=== PATIENT | male | born 1955 | race African-American/Black ===

== ENCOUNTER 2016-12-03 03:05 | Emergency (ER) | payer OTHER ==
[~2016-12-03] VITALS: Ht 172.7 cm; Wt 60.1 kg
[~2016-12-03 03:05] MED LIST: ALBUTEROL SULF8.5 GM IH; AMOX TR-K CLV1 EAC4 PO; CLINDAMYCIN HC300 MG PO; IBUPROFEN600 MG PO; NAPROXEN500 M2 PO; NORVASC10 MG PO; NORVASC5 MG; OMEPRAZOLE20 M1; OMEPRAZOLE20 M2 PO; PEN-VEE K,VEET500 MG PO; PERCOCET 5/31 TABLET PO; PREDNISONE20 MG PO; ROBAXIN500 MG; ULTRAM50 MG PO; VENTOLIN HFA18 GM IH; ZITHROMAX Z-PA250 MG PO
[2016-12-03 03:54] LABS: HEMATOCRIT 35.1 % (38.0-50.0); MCHC 31.9 G/DL (30.0-36.0); MCV 90.9 FL (86-99); MEAN PLAT.VOLUME 9.6 uM^3 (9.0-12.4); PLATELET COUNT 353 K/uL (156-360); RBC DIS.WIDTH-CV 11.9 % (11.8-14.6); RBC DIS.WIDTH-SD 39.9 % (39-53); RED BLOOD COUNT 3.86 M/uL (4.00-5.50); WHITE BLOOD COUNT 10.7 K/uL (4.1-10.2)
[2016-12-03 04:04] LABS: CHLORIDE 103 mEq/L (99-109); POTASSIUM 3.5 mEq/L (3.7-5.4); SODIUM 141 mEq/L (136-147)
[2016-12-03 04:06] LABS: GLUCOSE 142 mg/dL (70-99)
[2016-12-03 04:08] LABS: ANION GAP 14 MEQ/L (2-14)
[2016-12-03 04:10] LABS: GFR ESTIMATE (CALCULATED) > 59 mL/min/
[2016-12-03 04:11] LABS: UREA NITROGEN (BUN) 12 mg/dL (9-23)
[2016-12-03] MEDS ORDERED: LEVAQUIN500 MG PO (04:30)
[2016-12-03] MEDS ORDERED: DELTASONE20 M1 PO (04:30)
[2016-12-03 05:14] VITALS: BP 105/70
== END 2016-12-03 05:17 | disposition left against medical advice (07) ==
LOC: EME 03:05
PROVIDERS: Physician Assistant
DX: J44.0 Chronic obstructive pulmonary disease with (acute) lower respiratory infection (principal); J18.9 Pneumonia, unspecified organism; J44.1 Chronic obstructive pulmonary disease with (acute) exacerbation; R09.02 Hypoxemia; J45.909 Unspecified asthma, uncomplicated; I10 Essential (primary) hypertension; F17.200 Nicotine dependence, unspecified, uncomplicated
CPT/HCPCS: 71020; 80048; 83605; 85027; 87040; 94640; 94640 76; 99281; 99283; J7512

== ENCOUNTER 2017-02-09 20:39 | Observation (INO) | payer OTHER ==
[~2017-02-09] VITALS: Ht 172.7 cm; Wt 56.6 kg
[~2017-02-09 20:39] MED LIST changes: +DELTASONE20 M1 PO; +LEVAQUIN500 MG PO
[2017-02-09 21:46] LABS: HEMATOCRIT 39.7 % (38.0-50.0); MCH 28.6 PG (29.0-34.0); MCHC 31.2 G/DL (30.0-36.0); MCV 91.7 FL (86-99); PLATELET COUNT 171 K/uL (156-360); RBC DIS.WIDTH-CV 12.7 % (11.8-14.6); RBC DIS.WIDTH-SD 42.3 % (39-53); RED BLOOD COUNT 4.33 M/uL (4.00-5.50)
[2017-02-09 21:58] LABS: CHLORIDE 103 mEq/L (99-109); SODIUM 140 mEq/L (136-147)
[2017-02-09 22:00] LABS: GLUCOSE 129 mg/dL (70-99)
[2017-02-09 22:01] LABS: ANION GAP 10 MEQ/L (2-14)
[2017-02-09 22:03] LABS: GFR ESTIMATE (CALCULATED) > 59 mL/min/
[2017-02-09 22:04] LABS: UREA NITROGEN (BUN) 14 mg/dL (9-23)
[2017-02-09 22:12] LABS: TROP-I INTERPRETATION NEGATIVE; TROPONIN-I < 0.01 ng/mL (0.0-0.30)
[2017-02-10 01:20] LABS: BASE EXCESS 7.1 mEq/L (-3 to +3); BICARBONATE 32.5 mEq/L (22-26); CARBOXY HGB 6.3 % (0-5); PCO2 49 mm Hg (35-45); PO2 68 mm Hg (80-100); pH 7.43 (7.35-7.45)
[2017-02-10 01:21] LABS: COMMENTS - BLOOD GASES C+; DEVICE NC; O2 FLOW 4 L/MIN; SITE LR; TOTAL RESP RATE 10 resp/min
[2017-02-10 02:05] LABS: SERUM ETHYL ALCOHOL < 10 mg/dL
[2017-02-10 02:10] LABS: ADD MIUA? YES; BILIRUBIN NEGATIVE; BLOOD NEGATIVE; COLOR YELLOW ((YELLOW)); GLUCOSE (STRIP) NEGATIVE; KETONES NEGATIVE; LEUKOCYTES NEGATIVE; NITRITE NEGATIVE; PROTEIN (STRIP) NEGATIVE; SPECIFIC GRAVITY 1.016 (1.000-1.030); UROBILINOGEN 0.2 MG/DL (0.2-1.0)
[2017-02-10 02:13] LABS: TOTAL BILIRUBIN 1.1 mg/dL (0.0-1.0)
[2017-02-10 02:14] LABS: ALKALINE PHOSPHATASE 93 IU/L (3-129)
[2017-02-10 02:17] LABS: DIRECT BILIRUBIN 0.3 mg/dL (0.0-0.3)
[2017-02-10 02:19] LABS: ADD MEDTOX COMMENT Y; AMPHETAMINE NEGATIVE (500 ng/mL); BARBITURATES NEGATIVE (200 ng/mL); BENZODIAZEPINES NEGATIVE (150 ng/mL); COCAINE PRESUMPTIVE POSITIVE (150 ng/mL); INTERNAL CONTROLS VALID? YES; METHADONE PRESUMPTIVE POSITIVE (200 ng/mL); METHAMPHETAMINE NEGATIVE (500 ng/mL); OPIATES (MORPHINE) PRESUMPTIVE POSITIVE (100 ng/mL); OXYCODONE NEGATIVE (100 ng/mL); PHENCYCLIDINE NEGATIVE (25 ng/mL); PROPOXYPHENE NEGATIVE (300 ng/mL); THC CANNABINOIDS NEGATIVE (50 ng/mL); TRICYCLIC ANTIDEPRESSANTS NEGATIVE (300 ng/mL)
[2017-02-10 02:22] LABS: BACTERIA RARE /HPF; EPITHELIAL CELLS NONE SEEN /HPF; MUCUS NONE SEEN /LPF; RED BLOOD CELLS 0-5 /HPF (0-5); UCUL ADDED? NO; WHITE BLOOD CELLS 0-5 /HPF (0-5)
[2017-02-10 02:37] VITALS: BP 165/80
[2017-02-10 05:25] VITALS: BP 150/72
[2017-02-10 08:01] VITALS: BP 145/64
[2017-02-10] MEDS ORDERED: PREDNISONE10 MG PO (09:32)
[2017-02-10] MEDS ORDERED: IBUPROFEN600 MG PO (09:32)
== END 2017-02-10 10:34 | disposition home or self-care (01) ==
LOC: EME 20:39 → EDOF 02-10 01:13 → 5WEST 02-10 02:23
PROVIDERS: Emergency Medicine; Physician Assistant Medical
DX: S20.219A Contusion of unspecified front wall of thorax, initial encounter (principal); V89.2XXA Person injured in unspecified motor-vehicle accident, traffic, initial encounter; R07.89 Other chest pain; I10 Essential (primary) hypertension; J45.909 Unspecified asthma, uncomplicated; F11.10 Opioid abuse, uncomplicated; B19.20 Unspecified viral hepatitis C without hepatic coma; F17.200 Nicotine dependence, unspecified, uncomplicated; J44.9 Chronic obstructive pulmonary disease, unspecified; I48.91 Unspecified atrial fibrillation; K21.9 Gastro-esophageal reflux disease without esophagitis; R64 Cachexia; Z68.20 Body mass index [BMI] 20.0-20.9, adult; G25.3 Myoclonus; K44.9 Diaphragmatic hernia without obstruction or gangrene; R09.02 Hypoxemia; J98.11 Atelectasis
CPT/HCPCS: 36600; 70450; 71020; 71260; 80048; 80076; 81003; 82803; 84484; 84999; 85027; 93005; 94640; 94640 76; 99202; 99281; 99285; G0378; G0480; J1885; J7030; J7512

== ENCOUNTER 2017-02-26 06:46 | Emergency (ER) | payer OTHER ==
[~2017-02-26] VITALS: Ht 172.7 cm; Wt 61.5 kg
[~2017-02-26 06:46] MED LIST changes: +PREDNISONE10 MG PO
[2017-02-26 09:23] LABS: HEMATOCRIT 36.5 % (38.0-50.0); MCH 28.3 PG (29.0-34.0); MCHC 30.7 G/DL (30.0-36.0); MCV 92.2 FL (86-99); MEAN PLAT.VOLUME 9.2 uM^3 (9.0-12.4); RBC DIS.WIDTH-CV 12.6 % (11.8-14.6); RBC DIS.WIDTH-SD 42.5 % (39-53); RED BLOOD COUNT 3.96 M/uL (4.00-5.50); WHITE BLOOD COUNT 9.8 K/uL (4.1-10.2)
[2017-02-26 09:24] LABS: PLATELET COUNT 292 K/uL (156-360)
[2017-02-26 09:35] LABS: CHLORIDE 106 mEq/L (99-109); POTASSIUM 4.4 mEq/L (3.7-5.4); SODIUM 141 mEq/L (136-147)
[2017-02-26 09:37] LABS: GLUCOSE 99 mg/dL (70-99)
[2017-02-26 09:38] LABS: ANION GAP 9 MEQ/L (2-14)
[2017-02-26 09:39] LABS: TOTAL BILIRUBIN 0.5 mg/dL (0.0-1.0)
[2017-02-26 09:40] LABS: ALKALINE PHOSPHATASE 88 IU/L (3-129)
[2017-02-26 09:41] LABS: GFR ESTIMATE (CALCULATED) > 59 mL/min/
[2017-02-26 09:42] LABS: UREA NITROGEN (BUN) 11 mg/dL (9-23)
[2017-02-26 09:51] LABS: TROP-I INTERPRETATION NEGATIVE; TROPONIN-I < 0.01 ng/mL (0.0-0.30)
[2017-02-26] MEDS ORDERED: ZITHROMAX250 MG PO (10:37)
[2017-02-26 11:11] VITALS: BP 138/87
== END 2017-02-26 11:21 | disposition home or self-care (01) ==
LOC: EME 06:46
PROVIDERS: Nurse Practitioner Family
DX: J44.0 Chronic obstructive pulmonary disease with (acute) lower respiratory infection (principal); J18.9 Pneumonia, unspecified organism; V47 Car occupant injured in collision with fixed or stationary object; J45.909 Unspecified asthma, uncomplicated; I10 Essential (primary) hypertension; F17.210 Nicotine dependence, cigarettes, uncomplicated
CPT/HCPCS: 71020; 80053; 84484; 85027; 93005; 94640; 99281; 99284

== ENCOUNTER 2017-04-14 14:08 | Inpatient (IN) | payer OTHER ==
[~2017-04-14] VITALS: Ht 172.7 cm; Wt 59.4 kg
[~2017-04-14 14:08] MED LIST changes: +ZITHROMAX250 MG PO
[2017-04-14 15:24] LABS: HEMATOCRIT 33.5 % (38.0-50.0); MCH 28.6 PG (29.0-34.0); MCHC 32.2 G/DL (30.0-36.0); MCV 88.6 FL (86-99); MEAN PLAT.VOLUME 9.2 uM^3 (9.0-12.4); PLATELET COUNT 271 K/uL (156-360); RBC DIS.WIDTH-CV 12.8 % (11.8-14.6); RBC DIS.WIDTH-SD 41.2 % (39-53); RED BLOOD COUNT 3.78 M/uL (4.00-5.50); WHITE BLOOD COUNT 15.2 K/uL (4.1-10.2)
[2017-04-14 15:46] LABS: TROP-I INTERPRETATION NEGATIVE; TROPONIN-I < 0.01 ng/mL (0.0-0.30)
[2017-04-14 15:55] LABS: CHLORIDE 104 mEq/L (99-109); POTASSIUM 3.5 mEq/L (3.7-5.4); SODIUM 141 mEq/L (136-147)
[2017-04-14 15:56] LABS: GLUCOSE 155 mg/dL (70-99)
[2017-04-14 15:58] LABS: ANION GAP 17 MEQ/L (2-14)
[2017-04-14 16:00] LABS: GFR ESTIMATE (CALCULATED) > 59 mL/min/
[2017-04-14 16:01] LABS: UREA NITROGEN (BUN) 14 mg/dL (9-23)
[2017-04-14] MEDS ORDERED: NORVASC10 MG PO (17:24)
[2017-04-14] MEDS ORDERED: OMEPRAZOLE20 MG PO (17:25)
[2017-04-14] MEDS ORDERED: PERCOCET 10/1 TABLET PO (17:25)
[2017-04-14] MEDS ORDERED: SPIRIVA1 INHALATI IH (17:27)
[2017-04-14] MEDS ORDERED: EXPECTORANT200 M1 PO (17:27)
[2017-04-14] MEDS ORDERED: SYMBICORT60 INHALAT IH (17:28)
[2017-04-14] MEDS ORDERED: NAPROXEN500 MG PO (17:28)
[2017-04-14] MEDS ORDERED: PROAIR HFA8.5 GM IH (17:28)
[2017-04-14 20:12] VITALS: BP 109/62
[2017-04-14 23:58] VITALS: BP 113/63
[2017-04-15 03:44] VITALS: BP 122/66
[2017-04-15 07:32] LABS: EOSINOPHIL (%) 0 % (0-5); HEMATOCRIT 33.3 % (38.0-50.0); IMMATURE GRANULOCYTE (%) 0.9 % (0.0-0.7); IMMATURE GRANULOCYTE COUNT 0.1 K/uL; INSTRUMENT ABS NEUTROPHIL CT 8.2 K/uL; LYMPHOCYTE COUNT 0.8 K/uL (1.0-2.8); MCHC 31.5 G/DL (30.0-36.0); MCV 88.8 FL (86-99); MEAN PLAT.VOLUME 9.4 uM^3 (9.0-12.4); MONOCYTE (%) 2.3 % (3-12); MONOCYTE COUNT 0.2 K/uL (0-0.8); NEUTROPHIL COUNT 8.2 K/uL (1.8-6.4); PLATELET COUNT 278 K/uL (156-360); RBC DIS.WIDTH-CV 12.8 % (11.8-14.6); RBC DIS.WIDTH-SD 41.8 % (39-53); RED BLOOD COUNT 3.75 M/uL (4.00-5.50); WHITE BLOOD COUNT 9.3 K/uL (4.1-10.2)
[2017-04-15 07:46] VITALS: BP 134/81
[2017-04-15 08:27] LABS: INTERNAL CONTROL VALID? YES
[2017-04-15 09:10] LABS: ANION GAP 10 MEQ/L (2-14); CHLORIDE 109 MEQ/L (99-109); GFR ESTIMATE (CALCULATED) > 59 mL/min/; GLUCOSE 144 mg/dL (70-99); SAMPLE HEMOLYSIS CHECK 0; SAMPLE ICTERIC CHECK 0; SAMPLE LIPEMIA CHECK 0; SODIUM 145 MEQ/L (136-147); UREA NITROGEN (BUN) 15 mg/dL (9-23)
[2017-04-15 09:13] LABS: POTASSIUM 4.3 MEQ/L (3.7-5.4)
[2017-04-15 12:02] VITALS: BP 139/71
[2017-04-15 15:31] VITALS: BP 122/71
[2017-04-15 20:00] VITALS: BP 148/70
[2017-04-15 23:25] VITALS: BP 150/73
[2017-04-16 03:49] VITALS: BP 138/71
[2017-04-16 07:45] VITALS: BP 132/76
[2017-04-16 15:57] VITALS: BP 125/72
[2017-04-16] MEDS ORDERED: PREDNISONE10 MG PO (19:05)
[2017-04-16] MEDS ORDERED: CEFDINIR300 MG PO (19:05)
[2017-04-16 23:47] VITALS: BP 117/65
[2017-04-17 07:36] VITALS: BP 145/94
== END 2017-04-17 09:10 | disposition home or self-care (01) | DRG 190 ==
LOC: EME 14:08 → EDOF 17:06 → 5SOUTH 17:06 → ENRESERV 17:08 → 5SOUTH 19:37 → ENPENDDIS 04-17 → 5SOUTH 04-17 09:10
PROVIDERS: Family Medicine; Internal Medicine
DX: J44.0 Chronic obstructive pulmonary disease with (acute) lower respiratory infection (principal); J15.3 Pneumonia due to streptococcus, group B; J44.1 Chronic obstructive pulmonary disease with (acute) exacerbation; K21.9 Gastro-esophageal reflux disease without esophagitis; I48.0 Paroxysmal atrial fibrillation; B18.2 Chronic viral hepatitis C; F17.210 Nicotine dependence, cigarettes, uncomplicated; R09.02 Hypoxemia; J45.909 Unspecified asthma, uncomplicated; I10 Essential (primary) hypertension; E87.6 Hypokalemia; Z80.9 Family history of malignant neoplasm, unspecified; Z87.01 Personal history of pneumonia (recurrent)
CPT/HCPCS: 71020; 80048; 83605; 84484; 85025; 85027; 87040; 87070; 87205; 87449; 93005; 94010; 94640; 94640 76; 94799; 99202; 99281; 99285; J0456; J0696; J1650; J2930; J3480; J7040; J7050; J7512

== ENCOUNTER 2018-03-18 22:36 | Emergency (ER) | payer OTHER ==
[~2018-03-18] VITALS: Ht 167.6 cm; Wt 65.5 kg
[~2018-03-18 22:36] MED LIST changes: +CEFDINIR300 MG PO; +EXPECTORANT200 M1 PO; +NAPROXEN500 MG PO; +OMEPRAZOLE20 MG PO; +PERCOCET 10/1 TABLET PO; +PROAIR HFA8.5 GM IH; +SPIRIVA1 INHALATI IH; +SYMBICORT60 INHALAT IH
[2018-03-18 23:36] LABS: HEMATOCRIT 34.5 % (38.0-50.0); HEMOGLOBIN 11.1 G/DL (12.5-16.6); MCH 29.6 PG (29.0-34.0); MCHC 32.2 G/DL (30.0-36.0); PLATELET COUNT 300 K/uL (156-360); RBC DIS.WIDTH-CV 12.1 % (11.8-14.6); RBC DIS.WIDTH-SD 40.8 % (39-53); RED BLOOD COUNT 3.75 M/uL (4.00-5.50); WHITE BLOOD COUNT 9.1 K/uL (4.1-10.2)
[2018-03-18 23:43] LABS: CHLORIDE 105 mEq/L (99-109)
[2018-03-18 23:44] LABS: POTASSIUM 3.9 mEq/L (3.7-5.4); SODIUM 141 mEq/L (136-147)
[2018-03-18 23:46] LABS: GLUCOSE 114 mg/dL (70-99); TOTAL PROTEIN 7.3 g/dL (6.4-8.3)
[2018-03-18 23:48] LABS: TOTAL BILIRUBIN 0.7 mg/dL (0.0-1.0)
[2018-03-18 23:49] LABS: ALKALINE PHOSPHATASE 99 IU/L (3-129); GFR ESTIMATE (CALCULATED) > 59 mL/min/ (58.99-99999)
[2018-03-18 23:51] LABS: AST (GOT) 15 IU/L (2-34); UREA NITROGEN (BUN) 15 mg/dL (9-23)
[2018-03-18 23:52] LABS: ALT (GPT) 10 IU/L (3-49)
[2018-03-19] MEDS ORDERED: BACTRIM,SEPT1 TABLET PO (03:45)
[2018-03-19] MEDS ORDERED: KEFLEX500 MG PO (03:45)
[2018-03-19 04:23] VITALS: BP 153/94
== END 2018-03-19 04:23 | disposition home or self-care (01) ==
LOC: EME 22:36
DX: L03.116 Cellulitis of left lower limb (principal); R60.0 Localized edema; F11.10 Opioid abuse, uncomplicated; I10 Essential (primary) hypertension; F17.200 Nicotine dependence, unspecified, uncomplicated
CPT/HCPCS: 80053; 85027; 93970; 99281; 99283

== ENCOUNTER 2018-04-27 15:15 | Emergency (ER) | payer OTHER ==
[~2018-04-27] VITALS: Ht 172.7 cm; Wt 62.7 kg
[~2018-04-27 15:15] MED LIST changes: +BACTRIM,SEPT1 TABLET PO; +KEFLEX500 MG PO
[2018-04-27 16:31] LABS: HEMATOCRIT 41.9 % (38.0-50.0); HEMOGLOBIN 13.4 G/DL (12.5-16.6); MCH 29.6 PG (29.0-34.0); MCV 92.7 FL (86-99); PLATELET COUNT 293 K/uL (156-360); RBC DIS.WIDTH-CV 12.1 % (11.8-14.6); RED BLOOD COUNT 4.52 M/uL (4.00-5.50); WHITE BLOOD COUNT 9.4 K/uL (4.1-10.2)
[2018-04-27 16:45] LABS: CHLORIDE 104 mEq/L (99-109); POTASSIUM 3.6 mEq/L (3.7-5.4); SODIUM 140 mEq/L (136-147)
[2018-04-27 16:47] LABS: GLUCOSE 125 mg/dL (70-99)
[2018-04-27 16:50] LABS: CREATININE 0.9 mg/dL (0.6-1.3); GFR ESTIMATE (CALCULATED) > 59 mL/min/ (58.99-99999)
[2018-04-27 16:51] LABS: UREA NITROGEN (BUN) 13 mg/dL (9-23)
[2018-04-27 17:42] LABS: TROP-I INTERPRETATION NEGATIVE; TROPONIN-I < 0.01 ng/mL (0.0-0.30)
[2018-04-27] MEDS ORDERED: RECTICARE30 GM TP (20:14)
[2018-04-27 20:15] LABS: TROP-I INTERPRETATION NEGATIVE; TROPONIN-I < 0.01 ng/mL (0.0-0.30)
[2018-04-27] MEDS ORDERED: LEVAQUIN750 MG PO (21:16)
[2018-04-27] MEDS ORDERED: PREDNISONE20 MG PO (21:16)
[2018-04-27 21:33] VITALS: BP 167/87
== END 2018-04-27 21:33 | disposition home or self-care (01) ==
LOC: EME 15:15
PROVIDERS: Nurse Practitioner Family
DX: J44.1 Chronic obstructive pulmonary disease with (acute) exacerbation (principal); R09.02 Hypoxemia; F17.200 Nicotine dependence, unspecified, uncomplicated; I10 Essential (primary) hypertension; Z87.898 Personal history of other specified conditions
CPT/HCPCS: 71046; 80048; 84484; 85027; 93005; 94640; 99281; 99285; J2930